=== PATIENT | male | born 1950 | race Caucasian/White ===

== ENCOUNTER 2024-05-08 13:22 | Inpatient (IN) | payer MEDICARE, SELFPAY ==
--- NOTE | ~2024-05-08 | CT_ITS ---
EXAMINATION: CT knee RT wo con DATE: 05/08/2024 14:43 INDICATION: Right knee injury. TECHNIQUE: Computed tomography (CT) of the right knee was performed without intravenous contrast. Aut omated exposure control and iterative reconstruction technique were employed. The dose-length product was 560.01 mGy-cm. COMPARISON: Right knee radiograph 05/08/2024 FINDINGS: Bone alignment is normal. No fracture. There is mild tricompartmental osteoarthritis. There is a small knee joint effusion. There is a subcutaneous hematoma anteriorly that abuts the distal qu adriceps tendon. The quadriceps tendon is not well visualized distally. There is a small Albert's cyst . There is a loose body in a bursa posterior to the knee joint. IMPRESSION: 1. No fracture. 2. Mild right knee osteoarthritis. 3. Small knee joint effusion. 4. Subcutaneous hematoma anteriorly with poor visualization of the distal quadriceps tendon suspiciou s for tear. Consider MRI. Reviewed, dictated and finalized at location A. IMPRESSION: 1. No fracture. 2. Mild right knee osteoarthritis. 3. Small knee joint effusion. 4. Subcutaneous hematoma anteriorly with poor visualization of the distal quadr iceps tendon suspicious for tear. Consider MRI.
--- NOTE | ~2024-05-08 | CT_ITS ---
CT brain wo con Ordering provider: Conrad Messer MD History: 73 years Male with . trauma, poss LOC, H/A . Comparison: None. Technique: CT of the head without contrast. Radiation reduction technique utilized. DLP is 605.33mGy. FINDINGS: BRAIN PARENCHYMA AND CSF SPACES: No midline shift, mass effect or hemorrhage. The brain parenchyma a nd CSF spaces are otherwise normal. VISUALIZED PARANASAL SINUSES: Well aerated. MASTOIDS: Well aerated. BONES: The bones appear intact. SOFT TISSUES: Visualized nasopharynx is normal. Superficial soft tissues are normal. IMPRESSION: No acute intracranial findings. Reviewed, dictated and finalized at location A.
--- NOTE | ~2024-05-08 | XR_ITS ---
XR knee RT min 4V Ordering provider: Lorraine Araujo MD History: . Fall . Comparison: December 11, 2014 FINDINGS: BONES: No acute fracture or dislocation. JOINT SPACES: Normal. Mild marginal osteophytes in the patella which may indicate osteoarthritic sykes ges. SOFT TISSUES: Soft tissue swelling above the patella which may indicate fluid in the suprapatellar bu rsa. Injury of the quadriceps tendon cannot be excluded. IMPRESSION: No acute osseous abnormality right knee. Soft tissue swelling above the patella which may indicate fluid in the suprapatellar bursa. Injury of the quadriceps tendon cannot be excluded. Reviewed, dictated and finalized at location A. IMPRESSION: No acute osseous abnormality right knee. Soft tissue swelling above the patella which may indicate fluid in the suprapat ellar bursa. Injury of the quadriceps tendon cannot be excluded.
--- NOTE | ~2024-05-08 | MR_ITS ---
EXAMINATION: MR knee RT wo con DATE: 05/09/2024 08:57 INDICATION: Quadriceps tendon rupture TECHNIQUE: Magnetic resonance imaging (MRI) of the right knee was performed without intravenous contr ast. Sequences included coronal PD-weighted FSE, coronal PD-weighted FS FSE, sagittal T2-weighted FS E, sagittal PD-weighted FS FSE and axial PD weighted fat saturated FSE. Study was ordered with and wi thout intravenous contrast but patient refused the intravenous contrast. COMPARISON: CT dated 05/08/2024 FINDINGS: Medial compartment: Complex tear at the posterior horn of the medial meniscus with a small displaced meniscal flap extend ing superolaterally from a small radial tear involving the inner third of the meniscus. There is an a dditional longitudinal horizontal tear plane extending into the more peripheral aspect of the posteri or horn. There is a 2-3 mm nodular low signal intensity focus centered along a thin band of what appe ars to be meniscal tissue extending posteriorly from the anterior horn to greater extent than typical suggesting additional tear with displaced meniscal flap at the anterior horn. There is partial thick ness chondral ulceration with chondral surface irregularity along the anterior to central weightbeari ng medial femoral condyle. Cartilage along the medial tibial plateau appears relatively preserved. Lateral compartment: Lateral meniscus is normal. Small partial-thickness chondral fissuring likely involving less than 50% the cartilage thickness at the anterior weightbearing lateral femoral condyle. Remaining articular c artilage in the lateral compartment appears normal. Patellofemoral compartment: There is deep chondral ulceration the cephalad aspect of the patellar apical ridge and superolateral aspect of the medial patellar facet. Additional deep chondral fissuring along the more caudal aspect of the medial facet. Partial-thickness chondral ulceration and deep fissuring with underlying cortica l irregularity and small central subchondral osteophytes along the trochlear groove. Additional less severe partial-thickness chondral ulceration and fissuring without degenerative subchondral changes a t the medial trochlea. Ligaments and tendons: Anterior and posterior cruciate ligaments are normal. The medial collateral ligament and fibular reese ateral ligament complex are normal. Moderate tendinopathy and full-thickness tear and across the dist al quadriceps tendon. There is approximately 5 mm separation of the tear margins which occurs approxi mately 1 cm from the patellar insertion with fraying along both sides of the tear margin. The patella r tendon is normal. The visualized medial and lateral hamstring tendons as well as the iliotibial ban d are normal. Fluid: Minimal joint effusion with fluid extending from the suprapatellar pouch across the quadriceps tendon tear vena cava with a small heterogeneous signal intensity likely hematoma extending at least 5 cm p roximally along the anterior margin of the distal quadriceps tendon and muscle. Small Albert's cyst. N o loose osteochondral bodies identified. Osseous/other: Bone alignment is normal. No fracture or pathologic marrow replacing process. IMPRESSION: 1. Complete full-thickness tear of the distal quadriceps tendon. 2. Complex medial meniscal tear. 3. Mild tricompartmental osteoarthritis with extensive moderate and high-grade chondromalacia in the patellofemoral compartment, extensive moderate grade chondral malacia the medial compartment and smal l focus of moderate grade chondral malacia in the lateral compartment. Reviewed, dictated and finalized at location B.
[2024-05-08 13:39] VITALS: BP 151/87; PULSE 63; RESP 18; TEMP 36.6; O2SAT 97
[2024-05-08 13:40] VITALS: BP 151/87; PULSE 54; RESP 16; O2SAT 100
--- NOTE | 2024-05-08 14:39 | ED.FALL ---
HPI - Fall General Chief Complaint: Fall Stated Complaint: fall - knee pain Time Seen by Provider: 05/08/24 13:41 History of Present Illness HPI Narrative: Patient is a 73-year-old male who presents to the emergency department this afternoon complaining of right knee pain. Patient states that he was working on a which was elevated and part of the ileal take was hanging a low and he accidentally hit the front of his forehead on it causing him to lose balance and fall to the left side. Patient states as he fell he felt his right knee twist and since then he has been having some right knee swelling and pain. Patient admits that he has not able to walk or put any weight on his right lower extremity secondary to knee pain. Denies any headache, any loss of consciousness, any blurry visions, focal weakness, numbness and tingling. No additional symptoms or concerns at this time. Related Data Allergies Allergy/AdvReac Type Severity Reaction Status Date / Time Penicillins Allergy Mild Swelling Verified 05/08/24 13:42 of Lip/Tongue/Throat Review of Systems Review of Systems: All systems are reviewed and are negative unless stated otherwise in the HPI. Exam Narrative: General: Alert, awake, afebrile, in no acute distress. HEENT: PERRL, no rhinorrhea, no post nasal drip, oropharynx clear. Cardiovascular: Regular rate and rhythm, no murmurs, rubs or gallops, no peripheral edema. Respiratory: Clear to auscultation bilaterally, no tachypnea, no wheezing, no rhonchi, no rubs, no respiratory distress. Abdomen: Soft, nontender, nondistended, no rebound, no guarding, no peritoneal signs. Musculoskeletal: Significant swelling noted along the superior aspect of the right knee, intact right knee flexion and partial extension, patient is able to extend he has knee partially but cannot fully extended and cannot perform a straight leg rise of the right leg, tenderness to palpation over the superior patellar region/quadriceps tendon insertion, intact right PT and DP pulses, patient is neurovascularly intact. Skin: No rashes or petechia, no signs of infection. Neurological: Alert and oriented to person, place, and time. Follows all commands. No focal deficits, speech is clear and fluent. Course Vital Signs Vital signs: Vital Signs Temperature 97.8 F 05/08/24 13:39 Pulse Rate 63 05/08/24 13:39 Respiratory Rate 18 05/08/24 13:39 Blood Pressure 151/87 H 05/08/24 13:39 Pulse Oximetry 97 05/08/24 13:39 Oxygen Delivery Room Air 05/08/24 13:39 Temperature 97.8 F 05/08/24 13:39 Pulse Rate 50 L 05/08/24 15:13 Respiratory Rate 18 05/08/24 15:13 Blood Pressure 155/78 H 05/08/24 15:13 Pulse Oximetry 100 05/08/24 15:13 Oxygen Delivery Room Air 05/08/24 13:39 MDM - Fall MDM Narrative Medical decision making narrative: The patient was evaluated by myself in the emergency department. History is obtained from patient who is an independent historian and physical exam was performed. External medical records were reviewed at this time. were ordered. Imaging studies obtained included right knee x-ray which was independently interpreted by me revealing no fractures or dislocations, cannot exclude quadriceps tendon rupture, which is pending final radiology interpretation. CT bite knee was obtained at this time and did reveal a hematoma along the superior patellar region, unable to fully visualize the quadriceps tendon insertion concerning for quadriceps tendon rupture. At this time, case was discussed with the on-call orthopedic surgeon, Dr. Messer at 1516 and he recommended placing the patient in a knee immobilizer in ordering an MRI of the right knee. Patient will be made NPO at midnight. CBC, CMP and EKG will be ordered as part of the PE up medical clearance. Differential diagnosis considerations include fracture, dislocation, and tendon injury. Comorbidities impacting this visit include none. I juan c
[2024-05-08 15:13] VITALS: BP 155/78; PULSE 50; RESP 18; O2SAT 100
--- NOTE | 2024-05-08 15:44 | ECG_ITS ---
Test Date: 2024-05-08 16:08:08 Measurements Intervals Chadron Rate: 52 P: 55 AK: 213 QRS: 35 QRSD: 104 T: 29 QT: 443 QTc: 414 Interpretive Statements SINUS BRADYCARDIA WITH FIRST DEGREE AV BLOCK No previous ECG available for comparison Electronically Signed On 05-09-2024 13:31:33 CDT by Sanna Maya M.D.
[2024-05-08 16:07] LABS: Basophils Percent Auto 0.2 % (0.2-1.2); Eosinophils Absolute Auto 0.1 K/mm3 (0-0.3); Eosinophils Percent Auto 1.6 % (0-4.4); Hematocrit 40.3 % (42.0-52.0); Hemoglobin 13.8 g/dL (14.0-18.0); Immature Granulocyte Absolute 0.01 K/mm3 (0.00-0.031); Immature Granulocyte Percent A 0.2 % (0-0.5); Lymphocytes Absolute Auto 1.12 K/mm3 (0.9-3.2); Lymphocytes Percent Auto 22.6 % (18.3-44.2); Mean Corpuscular HGB Conc 34.2 g/dl (32-36); Mean Corpuscular Hemoglobin 30.2 pg (26-34); Mean Corpuscular Volume 88.2 fl (80-100); Mean Platelet Volume 9.7 fl (7.4-10.4); Monocytes Absolute Auto 0.6 K/mm3 (0.1-0.6); Monocytes Percent Auto 11.3 % (2.6-8.5); Neutrophils Absolute Auto 3.2 K/mm3 (1.3-6.7); Neutrophils Percent Auto 64.1 % (45.5-73.1); Platelet Count Result 155 k/mm3 (150-375); Red Blood Count 4.57 M/mm3 (4.6-6.20); Red Cell Distribution Width 12.9 % (11.5-14.5)
[2024-05-08 16:17] LABS: Alanine Aminotransferase 26 U/L (6-50); Albumin Level 4.1 g/dL (3.5-5.1); Alkaline Phosphatase 70 U/L (38-126); Anion Gap 7 mmol/L (4-12); Aspartate Amino Transferase 36 U/L (17-59); Bilirubin,Total 1.3 mg/dL (0.2-1.3); Blood Urea Nitrogen 20 mg/dL (9-20); Calcium 8.8 mg/dL (8.4-10.2); Carbon Dioxide 25 mmol/L (22-30); Chloride 106 mmol/L (98-107); Estimated CRCL calculation 47 ml/min; Estimated Glomerular Filt Rate 54; Glucose 102 mg/dL (65-110); Potassium 4.1 mmol/L (3.4-5.0); Sodium 138 mmol/L (137-145)
[2024-05-08 16:30] VITALS: BP 168/73; PULSE 53; RESP 20; TEMP 36.2; O2SAT 99
--- NOTE | 2024-05-08 16:30 | ADMGEN ---
This patient, Donald Bhagat, was admitted to Medical Room 252-01. Patient/family oriented to hospital policies and general routines including ID bracelet, bed and alarms, visiting hours, pain management, procedures, bathroom and other care routines, personal items, smoking policy, room service/diet, and visiting hours. Information on how to activate the Rapid Response Team has been discussed. Patient/Family are encouraged to report perceived risks to care and to ask questions if they do not understand what they are told or what they should do.
--- NOTE | 2024-05-08 17:01 | PM.IMHP ---
H&P: HPI History of Present Illness Date/Time: 05/08/24 17:01 Chief Complaint: Fall, Knee Pain Narrative: 73 y/o M presents here with right knee swelling and pain with PMH of HTN, RA, and GERD. SH of nasal surgery (deviated septum). The patient presents here from home for further evaluation of right knee swelling and pain post ground level fall. Patient reports yesterday he was working on his car up on a lift rack when he hit his head on the oil robins of the car, lost his balance, and fell onto his left side. When he fell his right leg stayed straight he reports that it twisted. Denies popping or tearing sensation. Post fall he was unable to ambulate and had to crawl to a phone to call 911. Patient reports his knee looked like it was sticking out . reported moderate headache that is now mild post trauma. Denies any tenderness to his neck. Denies any numbness or tingling To his upper or lower extremities. No blurred vision, nausea, vomiting, or focal neuro changes. He is not currently on a blood thinner. Initial VS at presentation: 97.8? F, HR 63, RR 18, 131/87, and 97% on RA. ED workup showed: No leukocytosis, hemoglobin 13.8, no significant electrolyte derangements, creatinine 1.3 and GFR 54. XR of the knee showed no acute osseous abnormality and soft tissue swelling above the patella which may indicate fluid in the suprapatellar bursa, injury to the quadriceps tendon cannot be excluded. CT of the right knee showed no fracture, mild right knee osteoarthritis, small knee joint effusion, and subcutaneous hematoma anteriorly with poor visualization of the distal quadriceps tendon suspicious for tear. Review of Systems Review of Systems: All systems reviewed & are unremarkable except as noted in HPI and below [facility] Past Medical History Medical History (Updated 05/08/24 @ 23:38 by Jael Farley APRN) Cataracts, bilateral GERD (gastroesophageal reflux disease) HTN (hypertension) Rheumatoid arthritis Surgical History Surgical History (Updated 05/08/24 @ 23:35 by Jael Farley APRN) History of nasal surgery for deviated septum Family History Family History Mother Old age Father Renal failure Hypertension Cerebrovascular accident Social History Social History Smoking status: Never smoker Alcohol intake: never Substance use: never Substance use type: does not use Do You Feel Safe in your Home?: Yes Lack of Transportation: No Lack of Food: Never True Current Housing: I Have Housing Concerned About Future Housing: No Difficulty Paying Gas/Electric Bills: No Difficulty Paying for Meds: No Currently Unemployed: No Education: Grade School Difficulty w/ Childcare or Family Care: No Spiritual care concerns: No Meds Home Medications and Allergies Home Medications Medication Instructions Recorded Confirmed Type amlodipine 5 mg tablet 5 mg PO DAILY 05/08/24 05/08/24 History lisinopril 40 mg tablet 20 mg DAILY 05/08/24 05/08/24 History Allergies Allergy/AdvReac Type Severity Reaction Status Date / Time Penicillins Allergy Mild Swelling Verified 05/08/24 17:05 of Lip/Tongue/Throat Vital Signs Vital Signs - 24 hr 05/08/24 13:39 05/08/24 13:40 05/08/24 15:13 Temperature 97.8 F Pulse Rate 63 54 L 50 L Respiratory Rate 18 16 18 Blood Pressure 151/87 H 151/87 H 155/78 H Pulse Oximetry 97 100 100 Oxygen Delivery Room Air Exam Const: General: comfortable and no acute distress Other: , male, nontoxic appearance HENMT: Face/Nose/Sinus: Normal nares present Mouth: Yes moist mucous membranes Eyes: General: appearance normal, both eyes and all related structures Sclera: sclerae normal Pupils: Equal, round and reactive pupils present EOM: EOMs intact bilaterally Neck: Other: no C-spine tenderness wit
[2024-05-08 17:16] VITALS: BMI 25.9
[2024-05-08 19:21] VITALS: BP 149/56; PULSE 60; RESP 18; TEMP 36.8; O2SAT 99
[2024-05-08 20:10] VITALS: PULSE 60; RESP 18; O2SAT 99
[2024-05-08] MEDS: ACETAMINOPHEN 500 MG TABLET 1000 MG PO (22:27)
[2024-05-09] VITALS (11 sets, daily range): BP systolic 102–139; BP diastolic 51–69; PULSE 52–71; RESP 12–20; TEMP 36.4–37.3; O2SAT 96–100
[2024-05-09 04:34] LABS: Basophils Percent Auto 0.2 % (0.2-1.2); Eosinophils Absolute Auto 0.1 K/mm3 (0-0.3); Eosinophils Percent Auto 3.2 % (0-4.4); Hematocrit 37.5 % (42.0-52.0); Immature Granulocyte Absolute 0.01 K/mm3 (0.00-0.031); Immature Granulocyte Percent A 0.2 % (0-0.5); Lymphocytes Absolute Auto 2.23 K/mm3 (0.9-3.2); Lymphocytes Percent Auto 50.8 % (18.3-44.2); Mean Corpuscular HGB Conc 34.7 g/dl (32-36); Mean Corpuscular Hemoglobin 30.7 pg (26-34); Mean Corpuscular Volume 88.4 fl (80-100); Mean Platelet Volume 9.9 fl (7.4-10.4); Monocytes Absolute Auto 0.6 K/mm3 (0.1-0.6); Monocytes Percent Auto 12.8 % (2.6-8.5); Neutrophils Absolute Auto 1.4 K/mm3 (1.3-6.7); Neutrophils Percent Auto 32.8 % (45.5-73.1); Platelet Count Result 149 k/mm3 (150-375); Red Blood Count 4.24 M/mm3 (4.6-6.20); Red Cell Distribution Width 12.8 % (11.5-14.5); White Blood Count 4.4 K/mm3 (4.5-10.0)
[2024-05-09 04:50] LABS: Anion Gap 5 mmol/L (4-12); Blood Urea Nitrogen 18 mg/dL (9-20); Calcium 8.6 mg/dL (8.4-10.2); Carbon Dioxide 26 mmol/L (22-30); Chloride 106 mmol/L (98-107); Estimated CRCL calculation 44 ml/min; Estimated Glomerular Filt Rate 50; Glucose 106 mg/dL (65-110); Potassium 3.9 mmol/L (3.4-5.0); Sodium 137 mmol/L (137-145)
--- NOTE | 2024-05-09 07:44 | PM.IMPN ---
Progress Note: A&P Assessment and Plan (1) Internal derangement of right knee: Code(s): M23.91 - Unspecified internal derangement of right knee Status: Acute Assessment and Plan: Patient had a mechanical ground level fall that injured his right knee. - CT head No acute intracranial findings - XR knee No acute osseous abnormality right knee. Soft tissue swelling above the patella which may indicate fluid in the suprapatellar bursa. Injury of the quadriceps tendon cannot be excluded. - CT knee 1. No fracture. 2. Mild right knee osteoarthritis. 3. Small knee joint effusion. 4. Subcutaneous hematoma anteriorly with poor visualization of the distal quadriceps tendon suspicious for tear. Consider MRI. - MRI knee 1. Complete full-thickness tear of the distal quadriceps tendon. 2. Complex medial meniscal tear. 3. Mild tricompartmental osteoarthritis with extensive moderate and high-grade chondromalacia in the patellofemoral compartment, extensive moderate grade chondral malacia the medial compartment and small focus of moderate grade chondral malacia in the lateral compartment. - Ortho consulted, plan for quadriceps tendon repair this afternoon - pain control - NPO - ambulate with assistance - monitor labs/pre-op work up (2) HTN (hypertension): Code(s): I10 - Essential (primary) hypertension Status: Acute Assessment and Plan: Chronic, stable on home medications. - Amlodipine 5 mg daily - Lisinopril 20 mg daily - Monitor Time Spent With Patient Time with patient: 25 - 35 minutes Subjective Date/time seen: 05/09/24 07:44 Interval history: 73 year old male with past medical history of HTN, RA, and GERD. SH of nasal surgery (deviated septum). Presents to the hospital for right knee swelling. Patient is pleasant lying comfortably bed. He states that his pain is well controlled. He notes that he is unable to lift his right leg and has increased pain with movement. He denies any numbness or tingling to the extremity. He underwent a MRI knee which showed a complete full-thickness tear of the quad and a complex medial meniscal tear. Ortho was consulted and plan for surgical repair this afternoon. Patient denies headache, chest pain, shortness of breath, nausea/vomiting and changes in bowel/bladder. Review of Systems Review of Systems: All systems reviewed & are unremarkable except as noted in HPI and below Exam Narrative: AF HR 61 RR 18 SpO2 98 BP 139/66 General: well nourished, well-developed male in no acute respiratory distress who is nontoxic appearing, lying semi recumbent in bed. HEENT: Normocephalic. Atraumatic. Pupils equal round reactive to light. Extraocular movement intact. Sclera clear and anicteric. No facial asymmetry. Chest: Lungs are clear to auscultation bilaterally. No wheezes or crackles. CV: Heart was regular rate and rhythm. S1/S2. Mild systolic murmur. No gallops, or rubs. Abd: Abdomen was soft. Nontender. Nondistended. Positive bowel sounds. No organomegaly or masses. Ext: Decreased range of motion to right lower extremity at the knee with mild edema and gap noted in the suprapatellar region. Soft knee immobilizer in place. No clubbing or cyanosis. 2+ DP pulses bilaterally. Neuro: Patient is alert and oriented x4. Cranial nerves 2-12 are intact. Speech is clear. Psych: Normal mood and affect. Patient is pleasant and cooperative. Skin: Warm and dry. No rashes noted. Objective Data Vital Signs Vital Signs: Vital Signs - 24 hr 05/08/24 13:39 05/08/24 13:40 05/08/24 15:13 Temperature 97.8 F Pulse Rate 63 54 L 50 L Respiratory Rate 18 16 18 Blood Pressure 151/87 H 151/87 H 155/78 H Pulse Oximetry 97 100 100 Oxygen Delivery Room Air Fraction of Inspired Oxygen 05/08/24 16:30 05/08/24 19:21 05/08/24 20:10 Temperature 97.2 F L 98.2 F Pulse Rate 53 L 60 60 Respiratory Rate 20 18 18 Blood Pressure 168/73 H 149/56 H Pulse Oximetry 99
[2024-05-09] MEDS: ACETAMINOPHEN 500 MG TABLET 1000 MG PO ×2 (08:05→12:51)
--- NOTE | 2024-05-09 12:12 | WPDHPUPDATE1 ---
History and Physical Update Update Date/Time: 05/09/24 12:12 History and Physical has been reviewed, including an updated exam of the patient. There are NO changes in the patient's condition. Risks, benefits, and alternatives have been discussed and questions answered. Patient agrees to proceed with procedure.
--- NOTE | 2024-05-09 12:12 | PM.CNOR ---
Assessment and Plan Assessment and plan (1) Rupture of right quadriceps tendon: Qualifiers: Encounter type: initial encounter Qualified Code(s): S76.111A - Strain of right quadriceps muscle, fascia and tendon, initial encounter Code(s): S76.111A - Strain of right quadriceps muscle, fascia and tendon, initial encounter Status: Acute Assessment and Plan: Patient is a 73-year-old gentleman who was admitted through the emergency room last evening with a right quadriceps tendon rupture. He was working on his car that was up on the left and he walked into the gas tank it was just above his vision which struck him on the head causing him to fall. He does not remember what happened but while on the ground he tried to get up and realized he had severe pain in this right knee was able bear weight he called the ambulance he was brought to [facility] ER. X-rays were obtained which were unremarkable except for soft tissue swelling in the region the quadriceps tendon CT scan was the same. An MRI scan was obtained to rule out additional internal derangement and showed complex tearing of the inner margin of the posterior horn of the medial meniscus and chondromalacia in the 3 compartments and no other significant abnormality. Patient did not have any problems with this knee prior to this injury he states. 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 His past medical history is significant for allergy to penicillin which cause swelling in his and the tongue and throat. We will plan to use Ancef a cephalosporin and he may be at some increased risk for having an allergic reaction due to his allergic reaction history to another drug however there is no direct proven cross reactivity between Ancef and penicillin. He has no history of problems with infections. He denies any personal history of DVT problems but his mother developed a spontaneous DVT in the past and was brought to the hospital and started on blood thinners he recalls. I have discussed with him my preference for using Eliquis for 6 weeks after surgery for DVT prophylaxis. His creatinine was slightly elevated at 1.4 GFR 50. Hemoglobin was slightly low today at 13.0. Labs otherwise within normal limits. On exam he is alert and oriented pleasant gentleman in no acute distress. He complains of a mild headache when asked for some Tylenol for this. With his suspected loss of consciousness, complains of mild headache, and the fact that we would need to use a blood thinner after surgery to prevent DVT, I recommended obtaining a CT scan of the brain without contrast and this showed no abnormalities. No evidence of bleeding. He has 2+ dorsalis pedis absent posterior tibial artery pulses palpable the right foot is no swelling leg. The skin is intact over the knee. He had intact sensation in the right foot and wiggle his toes and ankle up and down without difficulty. He denies any other injury. I have discussed risks of surgery with him in detail. I have explained process of quadriceps tendon repair and recovery with him. We will obtain a lockable hinged knee brace that we can adjust to optimal length. We will proceed this afternoon as discussed. History of Present Illness HPI Consult date: 05/09/24 Chief complaint: Concern for quadriceps tendon rupture PMFSH Past Medical History Medical History (Updated 05/09/24 @ 12:13 by Conrad Messer MD) Cataracts, bilateral GERD (gastroesophageal reflux disease) HTN (hypertension) Rheumatoid arthritis Surgical History Surgical History (Updated 05/08/24 @ 23:35 by Jael Farley APRN) History of nasal surgery for deviated septum Family History Family History Mother Old age Father Renal failure Hypertension Cerebrovascular accident Social History Social History Smoking status: Never smoker Alcoh
--- NOTE | 2024-05-09 14:00 | PC.NURSE ---
Patient to surgery via bed. IV in R AC, saline locked. Report given to Cat RN.
[2024-05-09] MEDS: LACTATED RINGERS 1,000 ML 30 ML IV CONT ×2 (14:15→17:02)
[2024-05-09] MEDS: VANCOMYCIN 1,250 MG/NS 250 ML BAG 166.67 MG IVPB (14:30)
--- NOTE | 2024-05-09 15:00 | WPDANESEPPF ---
Anes - Initial Pre Proc Eval Procedure: Operation Date: 05/09/24 15:00 Proposed Procedures p Repair Right Quadriceps Rupture - Conrad Messer MD Date/Time: 05/09/24 15:00 Surgeon: Hayley Ramirez PA-C Pre Op Diagnosis: Concern for quadriceps tendon rupture Patient Data Age: 73 Gender: M Height: 1.78 m Weight: 82 kg Last Vital Signs Temp 37.3 C 05/09/24 06:00 Pulse 61 05/09/24 06:00 Resp 18 05/09/24 06:00 BP 139/66 05/09/24 06:00 Pulse Ox 98 05/09/24 07:39 O2 Del Method Room Air 05/09/24 08:00 FiO2 21 05/09/24 07:39 Allergies Allergy/AdvReac Type Severity Reaction Status Date / Time Penicillins Allergy Mild Swelling Verified 05/08/24 17:05 of Lip/Tongue/Throat Home Medications Medication Instructions Recorded Confirmed Type amlodipine 5 mg tablet 5 mg PO DAILY 05/08/24 05/08/24 History lisinopril 40 mg tablet 20 mg DAILY 05/08/24 05/08/24 History Laboratory Tests 05/08/24 05/09/24 15:58 04:14 WBC 5.0 K/mm3 4.4 L K/mm3 (4.5-10.0) (4.5-10.0) RBC 4.57 L M/mm3 4.24 L M/mm3 (4.6-6.20) (4.6-6.20) Hgb 13.8 L g/dL 13.0 L g/dL (14.0-18.0) (14.0-18.0) Hct 40.3 L % 37.5 L % (42.0-52.0) (42.0-52.0) MCV 88.2 fl 88.4 fl (80-100) (80-100) MCH 30.2 pg 30.7 pg (26-34) (26-34) MCHC 34.2 g/dl 34.7 g/dl (32-36) (32-36) RDW 12.9 % 12.8 % (11.5-14.5) (11.5-14.5) Plt Count 155 k/mm3 149 L k/mm3 (150-375) (150-375) MPV 9.7 fl 9.9 fl (7.4-10.4) (7.4-10.4) Immature Gran % (Auto) 0.2 % 0.2 % (0-0.5) (0-0.5) Neut % (Auto) 64.1 % 32.8 L % (45.5-73.1) (45.5-73.1) Lymph % (Auto) 22.6 % 50.8 H % (18.3-44.2) (18.3-44.2) [place] % (Auto) 11.3 H % 12.8 H % (2.6-8.5) (2.6-8.5) Eos % (Auto) 1.6 % 3.2 % (0-4.4) (0-4.4) Baso % (Auto) 0.2 % 0.2 % (0.2-1.2) (0.2-1.2) Lymph # (Auto) 1.12 K/mm3 2.23 K/mm3 (0.9-3.2) (0.9-3.2) [place] # (Auto) 0.6 K/mm3 0.6 K/mm3 (0.1-0.6) (0.1-0.6) Eos # (Auto) 0.1 K/mm3 0.1 K/mm3 (0-0.3) (0-0.3) Baso # (Auto) 0.0 K/mm3 0.0 K/mm3 (0.0-0.1) (0.0-0.1) Abs Immat Gran (auto) 0.01 K/mm3 0.01 K/mm3 (0.00-0.031) (0.00-0.031) Absolute Neuts (auto) 3.2 K/mm3 1.4 K/mm3 (1.3-6.7) (1.3-6.7) Absolute Nucleated RBC 0.000 K/mm3 0.000 K/mm3 (0.0-0.012) (0.0-0.012) Nucleated RBC % 0.0 % 0.0 % (0.0-0.2) (0.0-0.2) Sodium 138 mmol/L 137 mmol/L (137-145) (137-145) Potassium 4.1 mmol/L 3.9 mmol/L (3.4-5.0) (3.4-5.0) Chloride 106 mmol/L 106 mmol/L (98-107) (98-107) Carbon Dioxide 25 mmol/L 26 mmol/L (22-30) (22-30) Anion Gap 7 mmol/L 5 mmol/L (4-12) (4-12) BUN 20 mg/dL 18 mg/dL (9-20) (9-20) Creatinine 1.30 mg/dL 1.40 H mg/dL (0.7-1.3) (0.7-1.3) Estim Creat Clear Calc 47 ml/min 44 ml/min Estimated GFR 54 L 50 L (59 - ) (59 - ) Glucose 102 mg/dL 106 mg/dL (65-110) (65-110) Calcium 8.8 mg/dL 8.6 mg/dL (8.4-10.2) (8.4-10.2) Total Bilirubin 1.3 mg/dL (0.2-1.3) AST 36 U/L (17-59) ALT 26 U/L (6-50) Alkaline Phosphatase 70 U/L (38-126) Total Protein 7.0 g/dL (6.3-8.2) Albumin 4.1 g/dL (3.5-5.1) Patient hx anesthesia problems: none Family hx anesthesia problems: none Results Review: All pre-operative results and documents have been reviewed as part of the pre-operative evaluation. [facility] Past Medical History Medical History Cataracts, bilateral GERD (gastroesophageal reflux disease) HTN (hypertension) Rheumatoid arthritis Surgical History Surgical History History of nasal surgery for deviated septum Family History Family History Mother Old age Father Re
--- NOTE | 2024-05-09 15:14 | WPDANESPNB ---
Anes - Peripheral Nerve Block Date/Time: 05/09/24 15:14 I have discussed with the patient/family/POA the placement of a peripheral nerve block for post-operative pain management, including associated risks, benefits, complications, and side effects. Alternative methods of post-operative analgesia were detailed. Questions were solicited and answers provided to the satisfaction of the patient/family/POA. Time-Out: A pre-procedural Time-Out was completed immediately before starting the procedure and confirmed: Patient Identification, Site, Procedure, Patient Position and the Availability of Requisite Equipment. Clinical Indications: Acute post-operative pain management requested by the operative surgeon. Nerve Block Insertion Note Anes-nerve block: femoral right Patient position: supine Skin prep: chlorhexidine Needle: 22 gauge, stimulating, insulated echogenic needle. Needle length: 50 mm Technique: nerve stimulation lost at (mA) (0.3) Technique comment: mid 1mg [id number] Injectate: bupivacaine 0.5% with epi 5 mcg/ml (30 ml no epi) and dexamethasone (mg) (4) Observations: tolerated well Complications: none Procedure start time:: 1509 Procedure end time:: 1514
[2024-05-09] MEDS: ceFAZolin 2 GM/D5W 50 ML 2 GM/50 ML BAG IVPB ×2 (15:21→22:19)
[2024-05-09] MEDS: ceFAZolin SODIUM 1 GM VIAL IM (15:53)
--- NOTE | 2024-05-09 16:52 | P.OP_ITS ---
Procedure Note - Detailed Date of Procedure 05/09/24 Pre-op Diagnosis Right quadriceps tendon rupture Post-op Diagnosis Same Procedure Performed Repair of right quadriceps tendon rupture Surgeon Conrad Messer MD Barrel Raiser Ramirez Anesthesia General Description of Procedure Patient was brought to the operating room and general anesthesia was administered. He received 2 g Ancef weight based vancomycin preoperatively. Chlorhexidine cloth scrub was performed in the preop holding area. The right leg was prepped with DuraPrep covered with [place] limb exsanguinated and tourniquet elevated to 250 mmHg. A 6 in longitudinal incision was made in line with the medial border of the patellar tendon extending from 2 cm distal to the inferior pole of patella to 4 cm proximal to the superior pole of patella. The quadriceps rupture was complete. It was an inverted U pattern. Over the pat honey the more superficial aponeurosis tendon fibers toward more in oblique plane with a flap of tendon tissue avulse from the anteromedial surface of the patella and flap of tendon tissue superficial layer avulsed proximally from the quadriceps tendon over the lateral aspect tendon. The deeper layers were avulsed in a transverse fashion cleanly off the superior pole patella. The superior pole of patella was prepared by using a rongeur to make 2 mm trough across the superior pole of patella of bleeding bone. We then passed 3 guidewires from the 4.5 cannulated screw set and inserted these running longitudinally 1 the center and 1 1 cm medial and 1 1 cm lateral to the center pin diverging the so we would have optimal bone bridges at the distal surface of the patella. 5. FiberWire suture 2 of them passed through the central hole and the suture passed under the lateral 1/2 the patellar tendon and back up the lateral and the other suture passed under the medial 1/2 of the proximal colon lar tendon and up the medial hole. We then used 5. FiberWire in a baseball stitch running from the ruptured deeper surface of the quadriceps tendon up with running baseball stitch pattern for twin acid inches and then back down for 2- 1/2 inches within the medial 1/2 of the quadriceps and another 5. Ethibond run up and back in similar fashion on the lateral 1/2 the quadriceps tendon. Maximal tension was applied to each of the 4 sutures removing any creep. The knee was then extended and the sutures tied tightly approximating the quadriceps tendon to the superior pole of patella. This was accomplished with accurate reduction such that the flaps of superficial quadriceps tendon to be anatomic we placed and held with 2. Vicryl was. The medial retinacular tear was closed with 2. Ethibond. The lateral retinacular tear was partly closed with 2. Vicryl stitch. This gave an anatomic repair to the quadriceps tendon. The tourniquet had been put down after we had tied the 4 pairs of 5. FiberWire. Total tourniquet time was 44 minutes. [place] flexion was easily to 90? with no apparent separation of the repair. Wound was again irrigated with Ancef solution. The skin closed with 2 subcutaneous Vicryl 3-0 subcuticular Monocryl and glue. EBL was 20 cc. There were no complications. A long knee immobilizer was applied the patient transferred postop recovery room stable condition. Urine Output 400 [facility]G Billing Surgery - Charge Forward: Surgery Billing (Repair of right quadriceps tendon rupture)
--- NOTE | 2024-05-09 18:17 | PC.NURSE ---
Returned from OR via bed. Report received from ANGIE Maguire. No patient complaints at this time.
[2024-05-09] MEDS: oxyCODONE HCL (*CRX) 5 MG TAB IR PO ×2 (18:29→21:07)
[2024-05-09] MEDS: ACETAMINOPHEN 325 MG TABLET 650 MG PO ×2 (18:29→21:07)
[2024-05-09] MEDS: FAMOTIDINE 20 MG TABLET PO (21:07)
[2024-05-10] MEDS: CALCIUM CARBONATE (TUMS) 500 MG (200 MG ELEMENTAL) PO ×2 (00:14→11:49)
[2024-05-10] MEDS: ACETAMINOPHEN 325 MG TABLET 650 MG PO ×5 (01:43→17:15)
[2024-05-10] MEDS: oxyCODONE HCL (*CRX) 5 MG TAB IR PO ×5 (01:43→17:15)
[2024-05-10] MEDS: VANCOMYCIN 1,000 MG/NS 250 ML 1,000 MG/250 ML BAG 250 MG IVPB ×2 (02:01→14:46)
[2024-05-10 04:00] VITALS: BP 127/59; PULSE 60; RESP 18; TEMP 36.6; O2SAT 97
[2024-05-10 05:03] LABS: Hematocrit 38.8 % (42.0-52.0); Hemoglobin 13.2 g/dL (14.0-18.0); Immature Granulocyte Absolute 0.01 K/mm3 (0.00-0.031); Immature Granulocyte Percent A 0.2 % (0-0.5); Lymphocytes Absolute Auto 0.96 K/mm3 (0.9-3.2); Lymphocytes Percent Auto 19.4 % (18.3-44.2); Mean Corpuscular Hemoglobin 30.3 pg (26-34); Mean Corpuscular Volume 89.2 fl (80-100); Monocytes Absolute Auto 0.5 K/mm3 (0.1-0.6); Monocytes Percent Auto 9.9 % (2.6-8.5); Neutrophils Absolute Auto 3.5 K/mm3 (1.3-6.7); Neutrophils Percent Auto 70.5 % (45.5-73.1); Platelet Count Result 169 k/mm3 (150-375); Red Blood Count 4.35 M/mm3 (4.6-6.20); Red Cell Distribution Width 12.9 % (11.5-14.5)
[2024-05-10 05:15] LABS: Anion Gap 7 mmol/L (4-12); Blood Urea Nitrogen 15 mg/dL (9-20); Calcium 8.9 mg/dL (8.4-10.2); Carbon Dioxide 23 mmol/L (22-30); Chloride 107 mmol/L (98-107); Estimated CRCL calculation 47 ml/min; Estimated Glomerular Filt Rate 54; Glucose 149 mg/dL (65-110); Potassium 4.6 mmol/L (3.4-5.0); Sodium 137 mmol/L (137-145)
[2024-05-10] MEDS: ceFAZolin 2 GM/D5W 50 ML 2 GM/50 ML BAG IVPB ×2 (06:01→14:07)
--- NOTE | 2024-05-10 06:53 | PM.IMPN ---
Progress Note: A&P Assessment and Plan (1) Internal derangement of right knee: Code(s): M23.91 - Unspecified internal derangement of right knee Status: Acute Assessment and Plan: Patient had a mechanical ground level fall that injured his right knee. - CT head No acute intracranial findings - XR knee No acute osseous abnormality right knee. Soft tissue swelling above the patella which may indicate fluid in the suprapatellar bursa. Injury of the quadriceps tendon cannot be excluded. - CT knee 1. No fracture. 2. Mild right knee osteoarthritis. 3. Small knee joint effusion. 4. Subcutaneous hematoma anteriorly with poor visualization of the distal quadriceps tendon suspicious for tear. Consider MRI. - MRI knee 1. Complete full-thickness tear of the distal quadriceps tendon. 2. Complex medial meniscal tear. 3. Mild tricompartmental osteoarthritis with extensive moderate and high-grade chondromalacia in the patellofemoral compartment, extensive moderate grade chondral malacia the medial compartment and small focus of moderate grade chondral malacia in the lateral compartment. - Ortho consulted s/p right quadriceps tendon rupture repair on 05/[address] Messer - pain control - ambulate with assistance - monitor labs/pre-op work up (2) HTN (hypertension): Code(s): I10 - Essential (primary) hypertension Status: Acute Assessment and Plan: Chronic, stable on home medications. - Amlodipine 5 mg daily - Lisinopril 20 mg daily - Monitor Subjective Date/time seen: 05/10/24 06:53 Interval history: 73 year old male with past medical history of HTN, RA, and GERD. SH of nasal surgery (deviated septum). Presents to the hospital for right knee swelling. Review of Systems Review of Systems: All systems reviewed & are unremarkable except as noted in HPI and below Exam Narrative: AF General: well nourished, well-developed male in no acute respiratory distress who is nontoxic appearing, lying semi recumbent in bed. HEENT: Normocephalic. Atraumatic. Pupils equal round reactive to light. Extraocular movement intact. Sclera clear and anicteric. No facial asymmetry. Chest: Lungs are clear to auscultation bilaterally. No wheezes or crackles. CV: Heart was regular rate and rhythm. S1/S2. Mild systolic murmur. No gallops, or rubs. Abd: Abdomen was soft. Nontender. Nondistended. Positive bowel sounds. No organomegaly or masses. Ext: Decreased range of motion to right lower extremity at the knee with mild edema and gap noted in the suprapatellar region. Soft knee immobilizer in place. No clubbing or cyanosis. 2+ DP pulses bilaterally. Neuro: Patient is alert and oriented x4. Cranial nerves 2-12 are intact. Speech is clear. Psych: Normal mood and affect. Patient is pleasant and cooperative. Skin: Warm and dry. No rashes noted. Objective Data Vital Signs Vital Signs: Vital Signs - 24 hr 05/09/24 07:39 05/09/24 08:00 05/09/24 14:00 Temperature 97.6 F Pulse Rate 52 L Respiratory Rate 14 Blood Pressure 134/68 Pulse Oximetry 98 98 Oxygen Delivery Room Air Room Air Oxygen Flow Rate Fraction of Inspired Oxygen 21 05/09/24 17:02 05/09/24 17:15 05/09/24 17:30 Temperature 98.4 F Pulse Rate 65 60 71 Respiratory Rate 20 12 16 Blood Pressure 102/57 L 104/54 L 129/69 Pulse Oximetry 99 100 100 Oxygen Delivery Simple Face Mask Simple Face Mask Simple Face Mask Oxygen Flow Rate 8 8 6 Fraction of Inspired Oxygen 05/09/24 17:45 05/09/24 18:00 05/09/24 18:13 Temperature 98.7 F Pulse Rate 65 58 L 54 L Respiratory Rate 16 16 18 Blood Pressure 127/69 130/65 122/65 Pulse Oximetry 97 98 96 Oxygen Delivery Room Air Room Air Oxygen Flow Rate Fraction of Inspired Oxygen 05/09/24 18:28 05/09/24 20:00 05/10/24 04:00 Temperature 97.6 F 97.8 F 97.8 F Pulse Rate 55 L 60 60 Respiratory Rate 20 16 18 Blood Pressure 125/65 128/51 L 127/59 L Pulse Oximet
--- NOTE | 2024-05-10 07:56 | PM.PNORT ---
Subjective Subjective Date/Time Seen: 05/10/24 07:56 Interval history: Postop day 1 patient is alert. The femoral nerve block is still working. He is numb to light touch around the medial aspect of his knee than thigh. Dressing is dry and intact. He is in his knee immobilizer. [employer] prost[employer] will be coming today to fit patient with a hinged knee brace that will be locked in extension. Once patient has this brace and therapy has worked with him the plan will be to discharge him home later this afternoon after IV antibiotics have been completed as well. Objective Data Vital Signs Vital Signs: Vital Signs - 24 hr 05/09/24 08:00 05/09/24 14:00 05/09/24 17:02 Temperature 97.6 F 98.4 F Pulse Rate 52 L 65 Respiratory Rate 14 20 Blood Pressure 134/68 102/57 L Pulse Oximetry 98 99 Oxygen Delivery Room Air Simple Face Mask Oxygen Flow Rate 8 05/09/24 17:15 05/09/24 17:30 05/09/24 17:45 Temperature Pulse Rate 60 71 65 Respiratory Rate 12 16 16 Blood Pressure 104/54 L 129/69 127/69 Pulse Oximetry 100 100 97 Oxygen Delivery Simple Face Mask Simple Face Mask Room Air Oxygen Flow Rate 8 6 05/09/24 18:00 05/09/24 18:13 05/09/24 18:28 Temperature 98.7 F 97.6 F Pulse Rate 58 L 54 L 55 L Respiratory Rate 16 18 20 Blood Pressure 130/65 122/65 125/65 Pulse Oximetry 98 96 96 Oxygen Delivery Room Air Oxygen Flow Rate 05/09/24 20:00 05/10/24 04:00 Temperature 97.8 F 97.8 F Pulse Rate 60 60 Respiratory Rate 16 18 Blood Pressure 128/51 L 127/59 L Pulse Oximetry 96 97 Oxygen Delivery Oxygen Flow Rate Intake/Output Intake/Output: Intake & Output 05/07/24 05/08/24 05/09/24 05/10/24 23:59 23:59 23:59 23:59 Intake Total 790 682.5 300 Output Total 500 1200 1600 Balance 290 -517.5 -1300 Meds/Results Medications: Active Medications Generic Name Dose Route Start Last Admin Trade Name Freq PRN Reason Stop Dose Admin Acetaminophen 650 mg 05/09/24 18:00 05/10/24 06:00 Acetaminophen 325 Mg Tablet PO 650 mg Q4H WARREN Administration Amlodipine Besylate 5 mg 05/08/24 23:39 Amlodipine Besylate 5 Mg Tablet PO QAM PRN Hypertension Apixaban 2.5 mg 05/10/24 09:00 Apixaban 2.5 Mg Tablet PO 05/21/24 21:01 Q12HR WARREN Calcium Carbonate 200 mg 05/09/24 23:40 05/10/24 00:14 Calcium Carbonate (Tums) 500 Mg (200 Mg Elemental) PO 200 mg Q6H PRN Administration Indigestion Cefdinir 300 mg 05/10/24 21:00 Cefdinir 300 Mg Capsule PO Q12HR WARREN Diphenhydramine HCl 25 mg 05/09/24 18:13 Diphenhydramine Hcl Inj 50 Mg/Ml Vial IV PUSH Q6H PRN Itching Famotidine 20 mg 05/09/24 21:00 05/09/24 21:07 Famotidine 20 Mg Tablet PO 20 mg Q12HR WARREN Administration Cefazolin Sodium 2 gm in 50 mls @ 100 mls/hr 05/09/24 23:00 05/10/24 06:31 Ancef 2 Gm/D5w 50 Ml IVPB 05/10/24 15:29 Infused Q8H WARREN Infusion Vancomycin HCl 1,000 mg in 250 mls @ 250 mls/hr 05/10/24 03:00 05/10/24 03:01 Vancomycin 1,000 Mg/Ns 250 Ml IVPB 05/10/24 15:59 Infused Q12H WARREN Infusion Lisinopril 20 mg 05/09/24 09:00 05/09/24 08:05 Lisinopril 20 Mg Tablet PO Not Given DAILY WARREN Morphine Sulfate 2 mg 05/09/24 18:13 Morphine Sulfate (*Crx) 2 Mg/Ml Inj IV PUSH Q2H PRN Breakthrough Pain Rated 4-6 or NPO Naloxone HCl 0.1 mg 05/09/24 18:13 Naloxone Hcl 0.4 Mg/Ml Vial IV PUSH Q2M PRN Opiate Reversal Ondansetron HCl 4 mg 05/09/24 18:13 Ondansetron Inj 4 Mg/2 Ml Vial IV PUSH Q4H PRN Nausea And Vomiting Oxycodone HCl 5 mg 05/09/24 18:00 05/10/24 06:00 Oxycodone Hcl (*Crx) 5 Mg Tab Ir PO 5 mg Q4H WARREN Administration Oxycodone HCl 5 mg 05/09/24 18:13 Oxycodone Hcl (*Crx) 5 Mg Tab Ir PO Q4H PRN Pain Rated 7-10 Polyethylene Glycol 17 gm 05/10/24 09:00 Polyethylene Glycol 3350 17 Gm Powd.Pack PO QAM WARREN Senna/Docusate Sodium 2 tab 05/10/24
[2024-05-10 07:58] VITALS: BP 126/66; PULSE 65; RESP 16; TEMP 36; O2SAT 96
[2024-05-10] MEDS: APIXABAN 2.5 MG TABLET PO (09:11)
[2024-05-10] MEDS: FAMOTIDINE 20 MG TABLET PO (09:11)
[2024-05-10] MEDS: SENNA/DOCUSATE SODIUM TABLET 2 TAB PO ×2 (09:11→17:15)
[2024-05-10] MEDS: lisinopriL 20 MG TABLET PO (09:11)
[2024-05-10 11:58] VITALS: BP 129/64; PULSE 89; RESP 16; TEMP 36.6; O2SAT 99
--- NOTE | 2024-05-10 13:23 | PM.DS ---
DS: Admitting Diagnosis Discharge Date 05/10/2024 Admitting Diagnosis Rupture of right quadriceps tendon Hypertension DS: Discharge Diagnosis Discharge Diagnosis (1) Rupture of right quadriceps tendon: Qualifiers: Encounter type: initial encounter Qualified Code(s): S76.111A - Strain of right quadriceps muscle, fascia and tendon, initial encounter Code(s): S76.111A - Strain of right quadriceps muscle, fascia and tendon, initial encounter Status: Acute (2) HTN (hypertension): Code(s): I10 - Essential (primary) hypertension Status: Acute DS: Summary Hospital Course Reason for hospitalization: Rupture of right quadriceps tendon Hypertension Hospital Course: 73 year old male with past medical history of HTN, RA, and GERD. SH of nasal surgery (deviated septum). Presents to the hospital for right knee swelling following a mechanical ground level fall. Patient noted that he hit his head on an oil pain of a lifted car which resulted him to lose his balance, twisting his leg and falling on his right knee. On arrival his labs were unremarkable. Head CT showed no acute intracranial process. He underwent an XR, CT and MRI of the right knee which revealed a complete full-thickness tear of the distal quadriceps tendon, complex medial meniscal tear, and mild tricompartmental osteoarthritis with extensive moderate and high-grade chondromalacia in the patellofemoral. Ortho was consulted and patient underwent a right quadriceps tendon rupture repair with Dr. Messer on 05/09. Postoperatively patient was placed in a hinge knee immobilizer and is to remain toe-touch weight-bearing with the brace locked in extension until he follows up with Dr. Messer in 2 weeks. Prior to discharge patient worked with PT/OT. Patient discharged home with family in a stable condition with a hinge knee immobilizer in place. He is to follow up with ortho as scheduled and follow the ortho discharge instructions. Status at Discharge Functional status at discharge: uses cane/walker Time Spent with Patient Time attestation: Total time spent providing and/or coordinating discharge services: Time spent: Greater than 30 minutes Exam Narrative: AF HR 89 RR 16 SpO2 99 BP 129/64 General: well nourished, well-developed male in no acute respiratory distress who is nontoxic appearing, lying semi recumbent in bed. HEENT: Normocephalic. Atraumatic. No facial asymmetry. Chest: Lungs are clear to auscultation bilaterally. No wheezes or crackles. CV: Heart was regular rate and rhythm. S1/S2. Mild systolic murmur. No gallops, or rubs. Abd: Abdomen was soft. Nontender. Nondistended. Positive bowel sounds. No organomegaly or masses. Ext: Mild edema of the right knee with surgical dressing in place. Hinge knee immobilizer in place. No clubbing or cyanosis. 2+ DP pulses bilaterally. Neuro: Patient is alert and oriented x4. Cranial nerves 2-12 are intact. Speech is clear. Psych: Normal mood and affect. Patient is pleasant and cooperative. Skin: Warm and dry. No rashes noted. DS: Data Data Completed and Pending Completed studies during hospitalization: Knee MRI Head CT Knee CT Knee XR Labs on day of discharge: Labs from last 24 hours 05/10/24 04:30 WBC 5.0 RBC 4.35 L Hgb 13.2 L Hct 38.8 L MCV 89.2 MCH 30.3 MCHC 34.0 RDW 12.9 Plt Count 169 MPV 10.0 Immature Gran % (Auto) 0.2 Neut % (Auto) 70.5 Lymph % (Auto) 19.4 [place] % (Auto) 9.9 H Eos % (Auto) 0.0 Baso % (Auto) 0.0 L Lymph # (Auto) 0.96 [place] # (Auto) 0.5 Eos # (Auto) 0.0 Baso # (Auto) 0.0 Abs Immat Gran (auto) 0.01 Absolute Neuts (auto) 3.5 Absolute Nucleated RBC 0.000 Nucleated RBC % 0.0 Sodium 137 Potassium 4.6 Chloride 107 Carbon Dioxide 23 Anion Gap 7 BUN 15 Creatinine 1.30 Estim Creat Clear Calc 47 Estimated GFR 54 L Glucose 149 H Calcium 8.9 Discharge Plan Discharge Attending physician on discharge: Coby El
--- NOTE | 2024-05-10 14:48 | WPDANESPN ---
Anes - Prog Note Post-Op Date/Time: 05/10/24 14:48 Cardiovascular status: normal Respiratory status: normal Airway patency: baseline Mental status: baseline Post-Op hydration status: normal Vital Signs: Last Vital Signs Temp 36.6 C 05/10/24 11:58 Pulse 89 05/10/24 11:58 Resp 16 05/10/24 11:58 BP 129/64 05/10/24 11:58 Pulse Ox 99 05/10/24 11:58 O2 Del Method Room Air 05/10/24 08:08 O2 Flow Rate 6 05/09/24 17:30 FiO2 21 05/09/24 07:39 Pain Score (VAS): 01/20 I/O: Intake & Output 05/09/24 05/10/24 05/10/24 23:59 07:59 15:59 Intake Total 632.5 300 410 Output Total 800 1600 Balance -167.5 -1300 410 Laboratory Tests 05/10/24 04:30 05/10/24 04:30 05/10/24 04:30 WBC 5.0 RBC 4.35 L Hgb 13.2 L Hct 38.8 L MCV 89.2 MCH 30.3 MCHC 34.0 RDW 12.9 Plt Count 169 MPV 10.0 Immature Gran % (Auto) 0.2 Neut % (Auto) 70.5 Lymph % (Auto) 19.4 [place] % (Auto) 9.9 H Eos % (Auto) 0.0 Baso % (Auto) 0.0 L Lymph # (Auto) 0.96 [place] # (Auto) 0.5 Eos # (Auto) 0.0 Baso # (Auto) 0.0 Abs Immat Gran (auto) 0.01 Absolute Neuts (auto) 3.5 Absolute Nucleated RBC 0.000 Nucleated RBC % 0.0 Sodium 137 Potassium 4.6 Chloride 107 Carbon Dioxide 23 Anion Gap 7 BUN 15 Creatinine 1.30 Estim Creat Clear Calc 47 Estimated GFR 54 L Glucose 149 H Calcium 8.9 Patient Feedback: Patient satisfied with anesthetic care.
--- NOTE | 2024-05-10 15:39 | PC.NURSE ---
Pt called stating he was having throat tightness, nausea, and left leg aches during vancomycin infusion. Pt states this reaction occurred during the [address] Messer stated to stop the infusion and pt ok to discharge on cefdinir antibiotics. Vancomycin added to pt's allergy list.
[2024-05-10 15:58] VITALS: BP 148/58; PULSE 51; RESP 18; TEMP 36.4; O2SAT 99
== END 2024-05-10 17:52 | disposition home or self-care (01) | DRG 502 ==
LOC: ANHED 15:51 → ANH2MED 16:22
PROVIDERS: Orthopaedic Surgery; Student in an Organized Health Care Education/Training Program; Admitting Provider Hospitalist; Emergency Provider Emergency Medicine; PCP Internal Medicine Infectious Disease; Visit Provider Physician Assistant Surgical
PROC: 0LQL0ZZ Repair Right Upper Leg Tendon, Open Approach (ICD-10-PCS; principal; 2024-05-09 15:00)
DX: S83.231A Complex tear of medial meniscus, current injury, right knee, initial encounter (principal); S76.111A Strain of right quadriceps muscle, fascia and tendon, initial encounter; M17.11 Unilateral primary osteoarthritis, right knee; M22.41 Chondromalacia patellae, right knee; M23.91 Unspecified internal derangement of right knee; M06.9 Rheumatoid arthritis, unspecified; H26.9 Unspecified cataract; I10 Essential (primary) hypertension; K21.9 Gastro-esophageal reflux disease without esophagitis; W18.30XA Fall on same level, unspecified, initial encounter; Z88.0 Allergy status to penicillin
CPT/HCPCS: 36415; 70450; 73564; 73700; 73721; 80048; 80053; 85025; 93005; 97161; 97165; 97530; 99285; A9270; C1769; J0690; J1100; J2250; J2405; J3010; J3370; J7120; L1830